=== PATIENT | female | born 1985 | race Caucasian/White ===

== ENCOUNTER → 2020-05-12 | Outpatient (CLI) | payer OTHER ==
[~2020-05-12] MED LIST: IBUP-1222 PO; OXYC-302 PO; PREN-2 PO
[2020-05-12 08:02] LABS: BASOPHILS # (AUTO) 0.02 x10^3/uL (0-0.1); BASOPHILS % (AUTO) 0 % (0-1); EOSINOPHILS # (AUTO) 0.01 x10^3/uL (0-0.4); EOSINOPHILS % (AUTO) 0 % (1-7); LYMPHOCYTES # (AUTO) 1.33 x10^3/uL (1-3.4); LYMPHOCYTES % (AUTO) 27 % (22-44); MD NO; MEAN CORPUSCULAR HEMOGLOBIN 31.6 pg (27.0-34.8); MEAN CORPUSCULAR VOLUME 95.9 fL (80-100); MEAN PLATELET VOLUME 6.6 fL (7.4-10.4); MONOCYTES # (AUTO) 0.31 x10^3/uL (0.2-0.8); MONOCYTES % (AUTO) 6 % (2-9); NEUTROPHILS # (AUTO) 3.29 x10^3/uL (1.8-6.8); NEUTROPHILS % (AUTO) 66 % (42-75); PLATELET COUNT 269 x10^3/uL (130-400); RED BLOOD COUNT 4.19 x10^6/uL (3.82-5.3); RED CELL DISTRIBUTION WIDTH 12.9 % (9.6-15.2)
[2020-05-12 08:13] LABS: ALANINE AMINOTRANSFERASE 25 U/L (12-78); ALBUMIN 3.6 g/dL (3.4-5.0); ANION GAP 8 mmol/L (5-15); CALCIUM 8.7 mg/dL (8.5-10.1); CHLORIDE 108 mmol/L (98-107); CREATININE 0.86 mg/dL (0.55-1.02)
[2020-05-12 08:21] LABS: ALKALINE PHOSPHATASE 58 U/L (45-117); BILIRUBIN,TOTAL 0.5 mg/dL (0.2-1.0); CHOL/HDL RATIO 2.2; CHOLESTEROL, TOTAL 158 mg/dL (140-239); FREE T4 (FREE THYROXINE) 0.95 ng/dL (0.76-1.46); HDL CHOL % 46 % (28-40); HDL CHOLESTEROL (DIRECT) 73 mg/dL (40-60); LDL CHOLESTEROL,CALCULATED 70 mg/dL (54-169); TOTAL PROTEIN 7.2 g/dL (6.4-8.2); TRIGLYCERIDES 76 mg/dL (50-200); VLDL CHOLESTEROL 15 mg/dL (0-25)
== END | disposition home or self-care (01) ==
LOC: LAB 07:50
PROVIDERS: ATTEND Nurse Practitioner Family
DX: Z00.00 Encounter for general adult medical examination without abnormal findings (principal)
CPT/HCPCS: 36415; 80053; 80061; 84439; 84443; 85025

== ENCOUNTER → 2020-09-02 | Outpatient (CLI) | payer OTHER ==
[2020-09-02 10:50] LABS: BASOPHILS % (AUTO) 1 % (0-1); EOSINOPHILS % (AUTO) 1 % (1-7); LYMPHOCYTES % (AUTO) 34 % (22-44); MEAN CORPUSCULAR HEMOGLOBIN 31.1 pg (27.0-34.8); MEAN CORPUSCULAR HGB CONC 33.1 g/dL (32.4-35.8); MONOCYTES % (AUTO) 6 % (2-9); NEUTROPHILS % (AUTO) 58 % (42-75); PLATELET COUNT 345 x10^3/uL (130-400); RED BLOOD COUNT 4.52 x10^6/uL (3.82-5.3); RED CELL DISTRIBUTION WIDTH 12.9 % (9.6-15.2)
[2020-09-02 10:52] LABS: MD NO
[2020-09-02 10:54] LABS: ALANINE AMINOTRANSFERASE 18 U/L (12-78); ANION GAP 5 mmol/L (5-15); CALCIUM 8.9 mg/dL (8.5-10.1); CHLORIDE 107 mmol/L (98-107); CREATININE 0.92 mg/dL (0.55-1.02)
[2020-09-02 11:04] LABS: ALKALINE PHOSPHATASE 66 U/L (45-117); BILIRUBIN,TOTAL 0.7 mg/dL (0.2-1.0); FREE T4 (FREE THYROXINE) 1.01 ng/dL (0.76-1.46); TOTAL PROTEIN 7.7 g/dL (6.4-8.2)
== END | disposition home or self-care (01) ==
LOC: LAB 10:25
PROVIDERS: ATTEND Nurse Practitioner Family
DX: Z00.00 Encounter for general adult medical examination without abnormal findings (principal); E03.9 Hypothyroidism, unspecified
CPT/HCPCS: 36415; 80053; 84439; 84443; 85025

== ENCOUNTER 2021-02-15 08:12 | Emergency (ER) | payer OTHER ==
[~2021-02-15] VITALS: Ht 165.1 cm; Wt 60.7 kg
[~2021-02-15 08:12] MED LIST changes: -OXYC-302 PO; +OXYC1TAB14 PO
[2021-02-15 08:45] LABS: BASOPHILS % (AUTO) 0 % (0-1); EOSINOPHILS % (AUTO) 0 % (1-7); LYMPHOCYTES % (AUTO) 11 % (22-44); MEAN CORPUSCULAR HEMOGLOBIN 30.5 pg (27.0-34.8); MEAN CORPUSCULAR HGB CONC 33.2 g/dL (32.4-35.8); MEAN PLATELET VOLUME 7.2 fL (7.4-10.4); MONOCYTES % (AUTO) 6 % (2-9); NEUTROPHILS % (AUTO) 83 % (42-75); PLATELET COUNT 296 x10^3/uL (130-400); RED BLOOD COUNT 4.43 x10^6/uL (3.82-5.3); RED CELL DISTRIBUTION WIDTH 15.1 % (9.6-15.2)
[2021-02-15 08:46] LABS: MD NO
--- NOTE | 2021-02-15 08:46 | NUR ---
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
[2021-02-15 09:00] LABS: ALBUMIN 3.9 g/dL (3.4-5.0); ANION GAP 8 mmol/L (5-15); CALCIUM 8.6 mg/dL (8.5-10.1); CHLORIDE 110 mmol/L (98-107)
[2021-02-15 09:05] LABS: ALANINE AMINOTRANSFERASE 30 U/L (12-78); ALKALINE PHOSPHATASE 74 U/L (45-117); CREATININE 0.91 mg/dL (0.55-1.02); TOTAL PROTEIN 7.7 g/dL (6.4-8.2)
--- NOTE | 2021-02-15 09:11 | NUR ---
PT AMBULATED TO ROOM FROM US. PT STATED THAT SHE HAS BEEN EXPERIENCING SEVERE LOWER ABDOMINAL PAIN/CRAMPING X2 DAYS. PT STATED THAT SHE IS CURRENTLY ON HER PERIOD, BUT HAS NEVER HAD PAIN LIKE THIS BEORE. PT DENIES ANY PAINFUL/BLOODY URINATION, CHANGES IN BM OF FEVER/ PT STATED THAT SHE WAS DRY HEAVING THIS MORNING.
[2021-02-15 09:24] LABS: MICROSCOPIC AUTO
[2021-02-15] MEDS ORDERED: MORPHINE SULFATE 4 MG/ML, 1ML ONE (10:26)
[2021-02-15] MEDS ORDERED: ONDANSETRON 2MG/ML, 2ML ONE (10:26)
[2021-02-15] MEDS ORDERED: ONDANSETRON 2MG/ML, 2ML IVPush ONE (10:30)
[2021-02-15] MEDS ORDERED: SODIUM CHLORIDE 0.9% 1,000ML IVBOLUS ONE (10:30)
[2021-02-15] MEDS ORDERED: MORPHINE SULFATE 4 MG/ML, 1ML IVPush PRN (10:30)
[2021-02-15] MEDS ORDERED: SODIUM CHLORIDE FLUSH 10ML SYR IVF ONE (10:30)
--- NOTE | 2021-02-15 11:00 | NUR ---
PT TO CT.
[2021-02-15 11:15] VITALS: BP 119/72
[2021-02-15] MEDS ORDERED: OMNIPAQUE 350 MG/ML, 100ML BOTTLE ONE (11:15)
--- NOTE | 2021-02-15 11:15 | NUR ---
PT BACK FROM CT
--- NOTE | 2021-02-15 13:20 | NUR ---
DISCHARGE INSTRUCTIONS REVIEWED WITH PT. ALL QUESTIONS ANSWERED AT THIS TIME.
== END 2021-02-15 13:22 | disposition home or self-care (01) ==
LOC: ED 09:10
DX: N83.299 Other ovarian cyst, unspecified side (principal); R10.2 Pelvic and perineal pain
CPT/HCPCS: 36415; 74177; 76830; 80053; 81001; 83690; 84703; 85025; 96361; 96374; 96375; 99285; J2270; J2405; J7030; Q9967

== ENCOUNTER 2021-02-20 15:23 | Outpatient (CLI) | payer OTHER ==
[~2021-02-20 15:23] MED LIST changes: +OXYC1TAB12 PO; -OXYC1TAB14 PO
[2021-02-20] MEDS ORDERED: OMNIPAQUE 350 MG/ML, 100ML BOTTLE ONE (16:21)
[2021-02-20] MEDS ORDERED: OMEG1CAP6 PO (22:26)
[2021-02-20] MEDS ORDERED: L.AC1CAP6 PO (22:26)
[2021-03-21] MEDS ORDERED: METR500T PO (10:37)
[2021-03-21] MEDS ORDERED: OMNICEF PO (10:37)
[2021-03-21] MEDS ORDERED: L.AC1CAP6 PO (10:37)
== END 2021-02-20 23:59 | disposition home or self-care (01) ==
LOC: CFH 15:23
PROVIDERS: ATTEND Obstetrics & Gynecology
DX: N73.9 Female pelvic inflammatory disease, unspecified (principal); R10.2 Pelvic and perineal pain
CPT/HCPCS: 74177; Q9967

== ENCOUNTER 2021-02-20 17:27 | Inpatient (IN) | payer OTHER ==
[~2021-02-20] VITALS: Ht 165.1 cm; Wt 54.5 kg
[~2021-02-20 17:27] MED LIST changes: -OXYC1TAB12 PO; +OXYC1TAB14 PO
--- NOTE | 2021-02-20 18:14 | NUR ---
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
[2021-02-20 18:34] LABS: BASOPHILS % (AUTO) 1 % (0-1); EOSINOPHILS % (AUTO) 1 % (1-7); LYMPHOCYTES % (AUTO) 14 % (22-44); MEAN CORPUSCULAR HEMOGLOBIN 30.5 pg (27.0-34.8); MEAN CORPUSCULAR HGB CONC 33.3 g/dL (32.4-35.8); MEAN PLATELET VOLUME 6.8 fL (7.4-10.4); MONOCYTES % (AUTO) 9 % (2-9); NEUTROPHILS % (AUTO) 76 % (42-75); PLATELET COUNT 364 x10^3/uL (130-400); RED BLOOD COUNT 3.97 x10^6/uL (3.82-5.3); RED CELL DISTRIBUTION WIDTH 15.4 % (9.6-15.2)
[2021-02-20 18:35] LABS: MD NO
[2021-02-20 18:42] LABS: ALANINE AMINOTRANSFERASE 67 U/L (12-78); ALBUMIN 2.9 g/dL (3.4-5.0); ANION GAP 6 mmol/L (5-15); CALCIUM 9.1 mg/dL (8.5-10.1); CHLORIDE 105 mmol/L (98-107); CREATININE 0.73 mg/dL (0.55-1.02)
[2021-02-20 18:46] LABS: ALKALINE PHOSPHATASE 141 U/L (45-117); BILIRUBIN,TOTAL 0.7 mg/dL (0.2-1.0); TOTAL PROTEIN 7.9 g/dL (6.4-8.2)
[2021-02-20] MEDS ORDERED: MORPHINE SULFATE 4 MG/ML, 1ML ONE (19:41)
[2021-02-20] MEDS ORDERED: ONDANSETRON 2MG/ML, 2ML ONE (19:41)
[2021-02-20] MEDS ORDERED: METRONIDAZOLE PMX 500MG/100ML 100 ML ONE (19:49)
[2021-02-20] MEDS ORDERED: ONDANSETRON 2MG/ML, 2ML IVPush ONE (20:00)
[2021-02-20] MEDS ORDERED: MORPHINE SULFATE 4 MG/ML, 1ML IVPush ONE (20:00)
[2021-02-20] MEDS ORDERED: AMPICILLIN/SULBACTAM 3 GM in SODIUM CHLORIDE 0.9% 100 ML IV ONE (20:00)
[2021-02-20] MEDS ORDERED: METRONIDAZOLE PMX 500MG/100ML 100 ML IV ONE (20:00)
[2021-02-20] MEDS ORDERED: morphine SULFATE 10 MG/ML, 1ML IVPush PRN (21:00)
[2021-02-20] MEDS ORDERED: ACETAMINOPHEN 325 MG TABLET PO PRN (21:00)
[2021-02-20] MEDS ORDERED: PROMETHAZINE 25 MG/ML, 1ML IM PRN (21:00)
[2021-02-20] MEDS ORDERED: BISACODYL 10 MG SUPP PR PRN (21:00)
[2021-02-20] MEDS ORDERED: LACTATED RINGERS 1,000 ML IV SCH (21:00)
[2021-02-20] MEDS ORDERED: ONDANSETRON 2MG/ML, 2ML IVPush PRN (21:00)
[2021-02-20] MEDS: HYDROcodone/APAP 5/325 TABLET PO PRN (21:53)
[2021-02-20] MEDS ORDERED: OMEG1CAP6 PO (22:26)
[2021-02-20] MEDS ORDERED: L.AC1CAP6 PO (22:26)
[2021-02-21] MEDS: PIPERACILLIN/TAZO/PMX 4.5GM 100 ML IV SCH ×5 (00:14→23:54)
[2021-02-21 02:14] VITALS: BP 100/60
[2021-02-21 02:47] LABS: MICROSCOPIC AUTO
[2021-02-21 04:56] LABS: BASOPHILS % (AUTO) 0 % (0-1); EOSINOPHILS % (AUTO) 0 % (1-7); LYMPHOCYTES % (AUTO) 13 % (22-44); MEAN CORPUSCULAR HEMOGLOBIN 30.8 pg (27.0-34.8); MEAN CORPUSCULAR HGB CONC 33.5 g/dL (32.4-35.8); MEAN PLATELET VOLUME 6.9 fL (7.4-10.4); MONOCYTES % (AUTO) 8 % (2-9); NEUTROPHILS % (AUTO) 79 % (42-75); PLATELET COUNT 317 x10^3/uL (130-400); RED BLOOD COUNT 3.56 x10^6/uL (3.82-5.3); RED CELL DISTRIBUTION WIDTH 15.1 % (9.6-15.2)
[2021-02-21 04:59] LABS: MD NO
[2021-02-21 05:01] LABS: ANION GAP 6 mmol/L (5-15); CALCIUM 8.4 mg/dL (8.5-10.1); CHLORIDE 105 mmol/L (98-107)
[2021-02-21 05:03] LABS: CREATININE 0.71 mg/dL (0.55-1.02)
[2021-02-21] MEDS: HYDROcodone/APAP 5/325 TABLET PO PRN ×3 (07:42→20:55)
[2021-02-21] MEDS: SENNA/DOCUSATE TABLET PO SCH (07:49)
[2021-02-21 08:05] VITALS: BP 120/79
[2021-02-21] MEDS ORDERED: FENTANYL PF 100 MCG/2ML ONE (09:48)
[2021-02-21] MEDS ORDERED: MIDAZOLAM 1 MG/ML, 5ML ONE (09:49)
[2021-02-21] MEDS ORDERED: NALOXONE 1 MG/ML, 2ML ONE (09:49)
[2021-02-21] MEDS ORDERED: FLUMAZENIL 0.1 MG/1 ML, 5ML ONE (09:49)
[2021-02-21] MEDS ORDERED: LIDOCAINE 1%, 10ML ONE (09:49)
[2021-02-21] MEDS ORDERED: ONDANSETRON ODT 4 MG PO PRN (13:30)
[2021-02-21 14:10] VITALS: BP 99/64
[2021-02-21 18:52] VITALS: BP 101/64
[2021-02-22 01:45] VITALS: BP 100/65
[2021-02-22 04:50] LABS: HCT (SEDRATE) 31.9 % (34.6-47.8)
[2021-02-22 04:53] LABS: BASOPHILS % (AUTO) 0 % (0-1); EOSINOPHILS % (AUTO) 1 % (1-7); LYMPHOCYTES % (AUTO) 16 % (22-44); MEAN CORPUSCULAR HEMOGLOBIN 30.8 pg (27.0-34.8); MEAN PLATELET VOLUME 6.9 fL (7.4-10.4); MONOCYTES % (AUTO) 7 % (2-9); NEUTROPHILS % (AUTO) 76 % (42-75); PLATELET COUNT 319 x10^3/uL (130-400); RED BLOOD COUNT 3.45 x10^6/uL (3.82-5.3); RED CELL DISTRIBUTION WIDTH 15.3 % (9.6-15.2)
[2021-02-22 05:01] LABS: MD NO
[2021-02-22 05:07] LABS: ANION GAP 4 mmol/L (5-15); CALCIUM 8.2 mg/dL (8.5-10.1); CHLORIDE 103 mmol/L (98-107)
[2021-02-22 05:14] LABS: CREATININE 0.77 mg/dL (0.55-1.02)
[2021-02-22 05:28] LABS: C-REACTIVE PROTEIN, QUANT > 19.00 mg/dL (0.02-0.49)
[2021-02-22] MEDS: PIPERACILLIN/TAZO/PMX 4.5GM 100 ML IV SCH ×4 (05:51→23:51)
[2021-02-22 07:30] VITALS: BP 100/61
[2021-02-22] MEDS: SENNA/DOCUSATE TABLET PO SCH (08:28)
[2021-02-22 13:30] VITALS: BP 106/66
[2021-02-22] MEDS: HYDROcodone/APAP 5/325 TABLET PO PRN (13:30)
[2021-02-22 19:08] VITALS: BP 116/79
[2021-02-22] MEDS: ENOXAPARIN 40 MG/0.4 ML SQ SCH (21:00)
[2021-02-23 00:12] VITALS: BP 104/68
[2021-02-23] MEDS: HYDROcodone/APAP 5/325 TABLET PO PRN (00:47)
[2021-02-23 05:58] LABS: BASOPHILS % (AUTO) 0 % (0-1); EOSINOPHILS % (AUTO) 2 % (1-7); LYMPHOCYTES % (AUTO) 17 % (22-44); MEAN CORPUSCULAR HGB CONC 32.7 g/dL (32.4-35.8); MONOCYTES % (AUTO) 6 % (2-9); NEUTROPHILS % (AUTO) 76 % (42-75); PLATELET COUNT 371 x10^3/uL (130-400); RED BLOOD COUNT 3.45 x10^6/uL (3.82-5.3); RED CELL DISTRIBUTION WIDTH 15.2 % (9.6-15.2)
[2021-02-23 05:59] LABS: ANION GAP 6 mmol/L (5-15); CALCIUM 8.5 mg/dL (8.5-10.1); CHLORIDE 108 mmol/L (98-107)
[2021-02-23 06:04] LABS: MD NO
[2021-02-23] MEDS: PIPERACILLIN/TAZO/PMX 4.5GM 100 ML IV SCH (06:09)
[2021-02-23 07:35] VITALS: BP 107/67
[2021-02-23] MEDS: SENNA/DOCUSATE TABLET PO SCH (08:50)
[2021-02-23 13:22] VITALS: BP 111/73
[2021-02-23] MEDS: AMPICILLIN/SULBACTAM 3 GM in SODIUM CHLORIDE 0.9% 100 ML IV SCH ×2 (13:58→21:48)
[2021-02-23 19:12] VITALS: BP 114/70
[2021-02-23] MEDS: ENOXAPARIN 40 MG/0.4 ML SQ SCH (21:00)
[2021-02-24 02:44] VITALS: BP 105/60
[2021-02-24] MEDS: AMPICILLIN/SULBACTAM 3 GM in SODIUM CHLORIDE 0.9% 100 ML IV SCH (06:02)
[2021-02-24 06:27] LABS: BASOPHILS % (AUTO) 0 % (0-1); EOSINOPHILS % (AUTO) 4 % (1-7); LYMPHOCYTES % (AUTO) 23 % (22-44); MEAN CORPUSCULAR HEMOGLOBIN 30.6 pg (27.0-34.8); MEAN CORPUSCULAR HGB CONC 33.3 g/dL (32.4-35.8); MEAN PLATELET VOLUME 6.8 fL (7.4-10.4); MONOCYTES % (AUTO) 5 % (2-9); NEUTROPHILS % (AUTO) 68 % (42-75); PLATELET COUNT 425 x10^3/uL (130-400); RED CELL DISTRIBUTION WIDTH 14.9 % (9.6-15.2)
[2021-02-24 06:35] LABS: MD NO
[2021-02-24 06:38] LABS: ANION GAP 4 mmol/L (5-15); CALCIUM 8.6 mg/dL (8.5-10.1); CHLORIDE 111 mmol/L (98-107); CREATININE 0.61 mg/dL (0.55-1.02)
[2021-02-24 07:30] VITALS: BP 100/65
[2021-02-24] MEDS: SENNA/DOCUSATE TABLET PO SCH (09:00)
[2021-02-24] MEDS ORDERED: ERTAPENEM 1 GM in SODIUM CHLORIDE 0.9% 50 ML IV SCH (11:00)
[2021-02-24 14:40] VITALS: BP 107/70
[2021-02-24] MEDS ORDERED: ERTA1VIA4 IV (15:00)
== END 2021-02-24 16:45 | disposition home or self-care (01) | DRG 373 ==
LOC: ED 18:29 → EDIP 21:29 → 4NE 21:41 → DCLOUNGE 02-24 16:37
PROVIDERS: ADMIT Family Medicine; ATTEND Internal Medicine
PROC: 0W9J30Z Drainage of Pelvic Cavity with Drainage Device, Percutaneous Approach (ICD-10-PCS; principal; 2021-02-21)
PROC: 02HV33Z Insertion of Infusion Device into Superior Vena Cava, Percutaneous Approach (ICD-10-PCS; 2021-02-23)
PROC: B548ZZA Ultrasonography of Superior Vena Cava, Guidance (ICD-10-PCS; 2021-02-23)
DX: K35.33 Acute appendicitis with perforation, localized peritonitis, and gangrene, with abscess (principal); D64.9 Anemia, unspecified; N73.9 Female pelvic inflammatory disease, unspecified; N83.209 Unspecified ovarian cyst, unspecified side; D72.829 Elevated white blood cell count, unspecified
CPT/HCPCS: 36415; 96365; 96375; 99285; J3490; 36573; 49406; 80048; 80053; 81001; 83605; 83735; 84100; 84703; 85025; 85651; 86140; 87040; 87070; 87075; 87076; 87077; 87102; 87186; 87205; 99156; 99157; C1894; G0378; J0295; J1335; J2250; J2405; J2543; J3010; C1729; C1751; C1769; J2270; J2310; J7120

== ENCOUNTER → 2021-03-16 | Outpatient (CLI) | payer OTHER ==
[~2021-03-16] MED LIST changes: +ERTA1VIA4 IV; +L.AC1CAP6 PO; +OMEG1CAP6 PO; +OMNIPAQUE 350 MG/ML, 100ML BOTTLE ONE
== END | disposition home or self-care (01) ==
LOC: CFH 08:53
PROVIDERS: ATTEND Internal Medicine Infectious Disease
DX: N73.8 Other specified female pelvic inflammatory diseases (principal)
CPT/HCPCS: 74177; Q9967

== ENCOUNTER 2021-03-24 07:01 | Day surgery (SDC) | payer OTHER ==
[~2021-03-24] VITALS: Ht 165.1 cm; Wt 59.0 kg
[~2021-03-24 07:01] MED LIST changes: +METR500T PO; +OMNICEF PO; -OMNIPAQUE 350 MG/ML, 100ML BOTTLE ONE
[2021-03-24 07:50] LABS: HCG UR SG 1.013 (1.003-1.030)
[2021-03-24 07:58] VITALS: BP 105/70
[2021-03-24] MEDS ORDERED: CHLORHEXIDINE 15 ML UDC PO ONE (08:00)
[2021-03-24] MEDS ORDERED: LACTATED RINGERS 1,000 ML IV SCH (08:00)
[2021-03-24] MEDS ORDERED: BUPIVACAINE/PF 0.5% ONE (08:02)
[2021-03-24] MEDS ORDERED: EPINEPHRINE 1 MG/ML, 1ML ONE (08:02)
[2021-03-24] MEDS ORDERED: MIDAZOLAM 1 MG/ML, 2ML ONE (08:05)
[2021-03-24] MEDS ORDERED: FENTANYL PF 250 MCG/5ML ONE (08:05)
[2021-03-24] MEDS ORDERED: CEFOTETAN 2 GM ONE (08:07)
[2021-03-24] MEDS ORDERED: KETOROLAC 30 MG/1 ML ONE (08:07)
[2021-03-24] MEDS ORDERED: DEXAMETHASONE 4 MG/ML, 1ML ONE (08:28)
[2021-03-24] MEDS ORDERED: HALOPERIDOL 5 MG/ML IV PRN (08:30)
[2021-03-24] MEDS ORDERED: morphine SULFATE 10 MG/ML, 1ML IVPush PRN (08:30)
[2021-03-24] MEDS ORDERED: ACETAMINOPHEN 325 MG TABLET PO PRN (08:30)
[2021-03-24] MEDS ORDERED: MEPERIDINE/PF 25MG/0.5ML IVPush PRN (08:30)
[2021-03-24] MEDS ORDERED: FENTANYL PF 100 MCG/2ML IV PRN (08:30)
[2021-03-24] MEDS ORDERED: OXYcodone 5 MG/5 ML ORAL.SOL UDC PO PRN (08:30)
[2021-03-24] MEDS ORDERED: PROMETHAZINE 25 MG/ML, 1ML IVPush PRN (08:30)
[2021-03-24] MEDS ORDERED: hydrALAzine 20 MG/ML, 1ML IV PRN (08:30)
[2021-03-24] MEDS ORDERED: LABETALOL 5MG/ML, 20ML IV PRN (08:30)
[2021-03-24] MEDS ORDERED: SCOPOLAMINE 1MG PATCH TD ONE (08:30)
[2021-03-24] MEDS ORDERED: ONDANSETRON 2MG/ML, 2ML ONE (08:52)
[2021-03-24] MEDS ORDERED: NEOSTIGMINE 1 MG/ML, 10ML ONE (08:52)
[2021-03-24] MEDS ORDERED: PROPOFOL 10 MG/ML, 20ML ONE (08:52)
[2021-03-24] MEDS ORDERED: ROCURONIUM 10MG/ML,5ML ONE (08:52)
[2021-03-24] MEDS ORDERED: GLYCOPYRROLATE 0.2MG/1ML, 5ML ONE (08:52)
[2021-03-24] MEDS ORDERED: HYDR-2214 PO (09:09)
[2021-03-24] MEDS ORDERED: HYDROcodone/APAP 5/325 TABLET PO PRN (09:30)
== END 2021-03-24 10:45 | disposition home or self-care (01) ==
LOC: OUT 07:01
PROVIDERS: ATTEND Surgery
DX: K35.33 Acute appendicitis with perforation, localized peritonitis, and gangrene, with abscess (principal); K38.8 Other specified diseases of appendix; Z20.822 Contact with and (suspected) exposure to COVID-19; Z79.891 Long term (current) use of opiate analgesic; Z79.899 Other long term (current) drug therapy
CPT/HCPCS: 44970; 81025; 88304; J0171; J1100; J1885; J2250; J2405; J2704; J2710; J3010; J7120; U0003; U0005